=== PATIENT | male | born 1985 | race Caucasian/White ===

== ENCOUNTER 2022-01-23 09:54 | Outpatient (CLI) | payer OTHER, SELFPAY ==
[2022-01-23 18:46] LABS: Basophils Absolute Auto 0.1 K/mm3 (0.0-0.1); Basophils Percent Auto 1.2 % (0.2-1.2); Eosinophils Absolute Auto 0.2 K/mm3 (0-0.3); Eosinophils Percent Auto 3.4 % (0-4.4); Hematocrit 45.4 % (42.0-52.0); Hemoglobin 15.2 g/dL (14.0-18.0); Immature Granulocyte Absolute 0.02 K/mm3 (0.00-0.031); Immature Granulocyte Percent A 0.3 % (0-0.5); Lymphocytes Absolute Auto 1.42 K/mm3 (0.9-3.2); Lymphocytes Percent Auto 22.1 % (18.3-44.2); Mean Corpuscular HGB Conc 33.5 g/dl (32-36); Mean Corpuscular Hemoglobin 32.9 pg (26-34); Mean Corpuscular Volume 98.3 fl (80-100); Mean Platelet Volume 9.8 fl (7.4-10.4); Monocytes Absolute Auto 0.7 K/mm3 (0.1-0.6); Monocytes Percent Auto 10.3 % (2.6-8.5); Neutrophils Percent Auto 62.7 % (45.5-73.1); Platelet Count Result 337 k/mm3 (150-375); Red Blood Count 4.62 M/mm3 (4.6-6.20); White Blood Count 6.4 K/mm3 (4.5-10.0)
[2022-01-23 18:47] LABS: Alanine Aminotransferase 31 U/L (6-50); Albumin Level 4.8 g/dL (3.5-5.1); Alkaline Phosphatase 47 U/L (38-126); Anion Gap 13 mmol/L (8-16); Aspartate Amino Transferase 74 U/L (17-59); Bilirubin,Total 0.3 mg/dL (0.2-1.3); Blood Urea Nitrogen 14 mg/dL (9-20); Calcium 9.5 mg/dL (8.4-10.2); Carbon Dioxide 25 mmol/L (22-30); Chloride 104 mmol/L (98-107); Cholesterol 154 mg/dL (0-200); Estimated Glomerular Filt Rate > 60; Glucose 115 mg/dL (65-110); HDL Direct 71 mg/dL; Potassium 4.6 mmol/L (3.4-5.0); Sodium 142 mmol/L (137-145); Triglycerides 65 mg/dL (<150)
[2022-01-23 19:01] LABS: LDL Cholesterol Direct 60 mg/dL
== END 2022-01-23 09:55 | disposition home or self-care (01) ==
PROVIDERS: PCP Family Medicine; Visit Provider Family Medicine
DX: Z00.00 Encounter for general adult medical examination without abnormal findings (principal)
CPT/HCPCS: 36415; 80053; 80061; 85025

== ENCOUNTER → 2022-02-12 09:57 | Outpatient (CLI) | payer OTHER, SELFPAY ==
--- NOTE | ~2022-02-12 | US_ITS ---
US scrotum doppler DATE: 02/12/2022 10:25 INDICATION: Right scrotal lump for 10 years TECHNIQUE: Real-time and color flow imaging and Doppler analysis COMPARISON: None FINDINGS: There is an approximately 8 mm simple cyst in the head of the right epididymis. Mild bilate ral hydroceles. There is homogeneous and symmetric echotexture of the testicles. There is no evidence of testicular m ass lesion or torsion. IMPRESSION: 8 mm cyst of head of right epididymis Mild bilateral hydroceles Reviewed, dictated and finalized at [facility]. Reviewed, dictated and finalized at location A.
== END ==
PROVIDERS: PCP Family Medicine; Visit Provider Family Medicine
DX: N50.89 Other specified disorders of the male genital organs (principal); N50.3 Cyst of epididymis; N43.3 Hydrocele, unspecified
CPT/HCPCS: 76870; 93976

== ENCOUNTER 2022-04-10 07:24 | Outpatient (CLI) | payer OTHER, SELFPAY ==
[2022-04-10 20:16] LABS: Alanine Aminotransferase 20 U/L (6-50); Albumin Level 4.2 g/dL (3.5-5.1); Alkaline Phosphatase 58 U/L (38-126); Aspartate Amino Transferase 27 U/L (17-59); Bilirubin,Total 0.2 mg/dL (0.2-1.3)
[2022-04-10 21:24] LABS: Hemoglobin A1C 5.3 % (<5.7)
[2022-04-10 21:28] LABS: Hepatitis B Surface Antigen Negative (Negative)
[2022-04-10 21:33] LABS: HAV RESULT Negative (Negative); Hepatitis B Core IgM Result Negative (Negative)
[2022-04-10 21:45] LABS: Hepatitis C Virus Antibody Negative (Negative)
== END 2022-04-10 07:25 | disposition home or self-care (01) ==
LOC: ANHBWCLAB 07:25
PROVIDERS: PCP Family Medicine; Visit Provider Family Medicine
DX: R73.09 Other abnormal glucose (principal); R74.01 Elevation of levels of liver transaminase levels
CPT/HCPCS: 36415; 80074; 80076; 83036

== ENCOUNTER 2022-04-19 15:08 | Outpatient (CLI) | payer OTHER, SELFPAY ==
--- NOTE | ~2022-04-19 | US_ITS ---
EXAMINATION: US soft tissue groin RT DATE: 04/19/2022 15:56 INDICATION: Unilateral right-sided inguinal hernia without obstruction TECHNIQUE: Multiple grayscale and Doppler ultrasound images of the right groin were obtained. COMPARISON: None FINDINGS: There is a fat-containing direct left inguinal hernia which arises medial to the hypogastric vessels. This measures approximately 2.2 x 1.9 cm at baseline increasing to 3.2 x 2.3 cm with Valsalva. No ev ident herniated bowel. IMPRESSION: 1. Small fat-containing direct inguinal hernia which increases slightly in size with Valsalva. Reviewed, dictated and finalized at location A. ION SUPERVISOR
== END 2022-04-19 15:09 | disposition home or self-care (01) ==
PROVIDERS: PCP Family Medicine; Visit Provider Family Medicine
DX: K40.90 Unilateral inguinal hernia, without obstruction or gangrene, not specified as recurrent (principal)
CPT/HCPCS: 76882

== ENCOUNTER 2022-05-08 14:49 | Emergency (ER) | payer OTHER, SELFPAY ==
--- NOTE | ~2022-05-08 | XR_ITS ---
EXAMINATION: XR foot RT min 3V DATE: 05/08/2022 15:41 INDICATION: Right heel pain. TECHNIQUE: 4 views of right foot were obtained. COMPARISON: None. FINDINGS: Bone alignment is normal. No fracture. There is mild osteoarthritis of first metatarsophala ngeal joint. IMPRESSION: 1. Mild osteoarthritis of first metatarsophalangeal joint. Reviewed, dictated and finalized at location A. ICAL RESEARCH COORDINATOR
[2022-05-08 15:00] VITALS: BP 130/74; PULSE 74; RESP 16; TEMP 36.8; O2SAT 100
--- NOTE | 2022-05-08 15:26 | ED.EXTPRO ---
HPI - Extremity Problem General Chief complaint: Extremity Problem,Nontraumatic Stated complaint: right foot pain Time Seen by Provider: 05/08/22 15:26 Source: patient Mode of arrival: ambulatory Limitations: no limitations History of Present Illness HPI Narrative: 37 y/o male presented for c/o right heel pain, onset 2 days. Worse with walking or touching it. Reports mild swelling and reddened area to the side of the heel. States redness and swelling was worse last night. Denies known injury. Denies numbness, tingling weakness, or decreased ROM. Not taking anything for pain. Related Data Allergies Allergy/AdvReac Type Severity Reaction Status Date / Time No Known Allergies Allergy Unverified 05/03/22 12:38 Review of Systems Review of Systems: CONSTITUTIONAL: Denies body aches, fever, chills EYES: Denies visual changes ENT: Denies rhinorrhea, congestion CARDIOVASCULAR: Denies chest pain, palpitations, or edema. RESPIRATORY: Denies cough or dyspnea. GASTROINTESTINAL: Denies abdominal pain, nausea, vomiting, or diarrhea. SKIN: Denies rash, itching, or wounds. MUSCULOSKELETAL: Denies back pain, joint pain, or myalgia. NEUROLOGIC: Denies headache, numbness, tingling, or weakness. PSYCH: Denies depression or anxiety. All systems reviewed & are unremarkable except as noted in HPI and below PMFSH Past Medical History Medical History (Updated 05/08/22 @ 15:52 by Yasemin Ambrose, CARLOS) Anxiety Depression Family History Family History Father Alcohol abuse Heart disease Asthma Mother Hypertension Depression Social History Social History Smoking packs per day: 0.5 Smoking cigarettes per day: 10.0 Years smoked: 22 Smoking pack-years: 11.00 Smoking status: Current every day smoker Tobacco type: cigarettes Alcohol intake: current Drinks per week: 25 Alcohol use details: 3-4 BEER/DAY Substance use: current Substance use type: marijuana Lack of Transportation: No Lack of Food: Never True Current Housing: I Have Housing Concerned About Future Housing: No Difficulty Paying Gas/Electric Bills: No Difficulty Paying for Meds: No Currently Unemployed: No Education: High School Diploma/GED Difficulty w/ Childcare or Family Care: No Additional occupation/education comments: [employer] Gender identity (if verbalized by the patient): Male Spiritual care concerns: No Agree to blood products: Yes Comments At time of signature, I have reviewed and agree with nursing past medical, surgical, social and family history unless otherwise noted. Please see nursing chart for further information. There is no relevant family history pertinent to the presenting complaint Exam Narrative: GENERAL: Well-appearing, well-nourished, and in no acute distress. HEAD: Normocephalic, atraumatic. EYES: PERRLA, conjunctivae clear NECK: Supple. CHEST: Speaks in full sentences. No respiratory distress. HEART: Regular rate and rhythm. Normal and equal peripheral pulses. EXTREMITIES: Right lateral foot distal to malleolus with mild erythema of approx 2cm diameter, tender to palpation, mild swelling, no fluctuance; tender to calcaneus. Right Foot has normal strength and sensation, normal range of motion but endorses pain with movement. No open wounds, bruising, or obvious deformity; alignment normal, pulse palpable and equal bilaterally, skin warm, dry, pink. Capillary refill less than 3 seconds. SKIN: Warm, dry, no rash. NEURO: Alert and oriented x3. Course Course Emergency Course: Patient is aware of diagnosis, understands and agrees to treatment plan. Anticipatory guidance given. Patient agrees to follow-up as directed and is aware of reasons to seek care at the emergency department. Portions of this record may have been created with voice recognition software Level of Care:
== END 2022-05-08 16:02 | disposition home or self-care (01) ==
PROVIDERS: Emergency Provider Nurse Practitioner Family; PCP Family Medicine
DX: M79.671 Pain in right foot (principal); F17.210 Nicotine dependence, cigarettes, uncomplicated; F12.90 Cannabis use, unspecified, uncomplicated; F41.9 Anxiety disorder, unspecified; F32.A Depression, unspecified
CPT/HCPCS: 73630; 99213; G0463

== ENCOUNTER 2022-05-09 14:38 | Outpatient (CLI) | payer OTHER, SELFPAY | END 2022-05-09 14:39 | disposition home or self-care (01) | PROVIDERS: PCP Family Medicine; Visit Provider Surgery | DX: K40.90 Unilateral inguinal hernia, without obstruction or gangrene, not specified as recurrent (principal) | CPT/HCPCS: 36415; 86850; 86900; 86901 ==

== ENCOUNTER 2022-05-23 11:00 | Outpatient (CLI) | payer OTHER, SELFPAY | END 2022-05-23 11:01 | disposition home or self-care (01) | LOC: ANHSURGERY 11:02 | PROVIDERS: PCP Family Medicine; Visit Provider Surgery | DX: K40.90 Unilateral inguinal hernia, without obstruction or gangrene, not specified as recurrent (principal) | CPT/HCPCS: 36415; 86850; 86900; 86901 ==

== ENCOUNTER 2022-06-01 00:51 | Day surgery (SDC) | payer OTHER, SELFPAY ==
[2022-05-03 12:38] VITALS: BMI 21.2
--- NOTE | 2022-05-03 12:42 | PC.NURSE ---
Report to the Outpatient Waiting Room, entrance under the green pavilion located off [facility], at time 12:30 on date 05/15/22. Planned Procedure Time: 2:30. Time changes happen often and if your time is changed the preop area will call you the afternoon before. - You and your visitor will be asked to self-screen and do not enter if you have any COVID symptoms. - Only one visitor is requested with a max of two and NO children visitors are allowed at this time. - The patient visitor may be requested to leave or wait in car when not with patient due to distancing restrictions. - A mask is REQUIRED within the hospital. Patients may have clear liquids (water, carbonated beverages, clear teas, apple juice) until 3 hours prior to surgery (11:30) with a maximum of 20 ounces. - No food from midnight until time of surgery Take the following medications with a SIP of water the morning of surgery: LEXAPRO Medications to discontinue per physician: N/A Date to take last dose: N/A Please no make-up, nail mauritanian, hairspray, perfume, deodorant, or body powder the day of surgery. No jewelry (including any body piercings) or valuables the day of surgery, leave them at home. Please take a shower or bath the night before, or the morning of, surgery with an antibacterial soap (HIBICLENS). Wear comfortable, loose fitting clothing. - Jewelry must be removed prior to entering the operating room. Rings and piercings that are not removed may be cut off. - The hospital will not accept responsibility for valuables. - Please leave all valuables, including medications, at home the day of surgery. If you are going home after surgery, a licensed bung driver must drive you home. - NO public transportation without another adult if you receive anesthesia. - We recommend that an adult stay with you for 24 hours following discharge. - We also recommend that you do not drive, make important decision, drink alcoholic beverages, or take any drugs that were not prescribed by your health care provider for at least 24 hours after your discharge time. Follow any additional instructions given to you from your surgeon. If you or anyone in your household have experienced Covid symptoms in the past week, please notify your surgeon or the nurse liaison at the phone number below for possible testing. Telephone instructions given to PT - SEBLE LUX and asked if any additional questions and then verbalized understanding. Patient advised to call surgeon office or pre surgery nurse liaison [phone] if any additional questions.
--- NOTE | 2022-05-16 15:34 | SUR.PREOP ---
Addendum entered by Yasemin Doyle RN 05/30/22 10:29: PT TO ARRIVE AT 1030 ON 06/01/22 FOR SURGERY AT 1230. MAX 20 OZ CLEAR LIQUIDS UNTIL 0930. Original Note: Report to the Outpatient Waiting Room, entrance under the green pavilion located off [facility], at time 1230 on date 05/29/22. Planned Procedure Time: 1430. Time changes happen often and if your time is changed the preop area will call you the afternoon before. - You and your visitor will be asked to self-screen and do not enter if you have any COVID symptoms. - Only one visitor is requested with a max of two and NO children visitors are allowed at this time. - The patient visitor may be requested to leave or wait in car when not with patient due to distancing restrictions. - A mask is optional within the hospital at this time. Patients may have clear liquids (water, carbonated beverages, clear teas, apple juice) until 3 hours prior to surgery with a maximum of 20 ounces. - NO CLEAR LIQUIDS AFTER 1130 - No food from midnight until time of surgery - Infants may have breast milk until 4 hours before surgery, formula 6 hours prior to surgery. - Children will be allowed to drink immediately following surgery. If applicable, please bring a bottle or sippy cup to assist with drinking. Juice, water, soda, and popsicles are readily available. For infants on formula, please bring formula the day of surgery. Pacifiers are allowed. Take the following medications with a SIP of water the morning of surgery: LEXAPRO DO NOT STOP ANY OF YOUR OTHER PRESCRIPTION MEDICATIONS PRIOR TO SURGERY ?EXCEPT THE FOLLOWING Medications to discontinue per physician N/A Please no make-up, nail romansh, hairspray, perfume, deodorant, or body powder the day of surgery. No jewelry (including any body piercings) or valuables the day of surgery, leave them at home. Please take a shower or bath the night before, or the morning of, surgery with an antibacterial soap. Wear comfortable, loose fitting clothing. Children are encouraged to wear pajamas. - Jewelry must be removed prior to entering the operating room. Rings and piercings that are not removed may be cut off. - The hospital will not accept responsibility for valuables. - Please leave all valuables, including medications, at home the day of surgery. If you are going home after surgery, a licensed yard truck driver must drive you home. - NO public transportation without another adult if you receive anesthesia. - We recommend that an adult stay with you for 24 hours following discharge. - We also recommend that you do not drive, make important decision, drink alcoholic beverages, or take any drugs that were not prescribed by your health care provider for at least 24 hours after your discharge time. For Pediatric surgeries, we recommend two adults accompany the child home. Follow any additional instructions given to you from your surgeon. If you or anyone in your household have experienced Covid symptoms in the past week, please notify your surgeon or the nurse liaison at the phone number below for possible testing. Telephone instructions given to STEPHANIE LUX and asked if any additional questions and then verbalized understanding. Patient advised to call surgeon office or pre surgery nurse liaison [phone] if any additional questions.
--- NOTE | 2022-05-29 09:55 | SUR.PREOP ---
Patient's mom Ana called to report patient was not going to be able to have surgery today and was calling the office to cancel
--- NOTE | 2022-05-30 10:30 | PC.NURSE ---
Pt states no changes in medications or health history since initial interview. New pre-op instructions reviewed with pt. Pt denies further questions at this time.
--- NOTE | 2022-05-31 13:36 | WPDANESEPPF ---
Anes - Initial Pre Proc Eval Procedure: Operation Date: 06/01/22 13:00 Proposed Procedures p Robotic Assisted Laparoscopic Right Inguinal Hernia Repair, Possible Left Inguinal Hernia Repair, Possible Open - Brandan Delgado MD <Owen Coates MD - Last Filed: 06/14/22 14:06> Date/Time: 05/31/22 13:36 <Owen Coates MD - Last Filed: 06/14/22 14:06> Surgeon: Brandan Delgado MD <Owen Coates MD - Last Filed: 06/14/22 14:06> Pre Op Diagnosis: reduceable right inguinal hernia <Owen Coates MD - Last Filed: 06/14/22 14:06> Patient Data Age: 37 Gender: M Height: 1.73 m Weight: 63.5 kg <Owen Coates MD - Last Filed: 06/14/22 14:06> Allergies Allergy/AdvReac Type Severity Reaction Status Date / Time No Known Allergies Allergy Verified 06/12/22 10:43 <Owen Coates MD - Last Filed: 06/14/22 14:06> Home Medications Medication Instructions Recorded Confirmed Type escitalopram oxalate 20 mg tablet 20 mg PO DAILY #90 tabs 03/08/22 06/01/22 Rx (Lexapro) <Owen Coates MD - Last Filed: 06/14/22 14:06> Patient hx anesthesia problems: none <Jorge Holm MD - Last Filed: 06/01/22 12:54> Family hx anesthesia problems: none <Jorge Holm MD - Last Filed: 06/01/22 12:54> Results Review: All pre-operative results and documents have been reviewed as part of the pre-operative evaluation. <Owen Coates MD - Last Filed: 06/14/22 14:06> PMFSH Past Medical History Medical History: Medical History (Updated 06/12/22 @ 10:48 by Kasey Pierce) Anxiety Depression <Owen Coates MD - Last Filed: 06/14/22 14:06> Surgical History Surgical History: Surgical History (Updated 06/12/22 @ 10:44 by Amber Pendleton) S/P hernia repair Robotic assisted laparoscopic bilateral inguinal hernia repairs with Bard 3D mid weight mesh. 06/01/22 <Owen Coates MD - Last Filed: 06/14/22 14:06> Family History Family History: Family History Father Alcohol abuse Heart disease Asthma Mother Hypertension Depression <Owen Coates MD - Last Filed: 06/14/22 14:06> Social History Social History: Social History Smoking packs per day: 0.5 Smoking cigarettes per day: 10.0 Years smoked: 22 Smoking pack-years: 11.00 Smoking status: Current every day smoker Tobacco type: cigarettes Alcohol intake: current Drinks per week: 25 Alcohol use details: 3-4 BEER/DAY Substance use: current Substance use type: marijuana Lack of Transportation: No Lack of Food: Never True Current Housing: I Have Housing Concerned About Future Housing: No Difficulty Paying Gas/Electric Bills: No Difficulty Paying for Meds: No Currently Unemployed: No Education: High School Diploma/GED Difficulty w/ Childcare or Family Care: No Living arrangements: alone Occupation/Education: occupation Additional occupation/education comments: [employer] Gender identity (if verbalized by the patient): Male Spiritual care concerns: No Agree to blood products: Yes <Owen Coates MD - Last Filed: 06/14/22 14:06> Anes - Eval Final PreProcedure Day of Procedure 05/31/22 13:36 <Owen Coates MD - Last Filed: 06/14/22 14:06> Patient weight: thin <Jorge Holm MD - Last Filed: 06/01/22 12:54> Heart: regular rate and rhythm <Jorge Holm MD - Last Filed: 06/01/22 12:54> Lungs: clear to auscultation <Jorge Holm MD - Last Filed: 06/01/22 12:54> Airway: Mallampati scale class II <Jorge Holm MD - Last Filed: 06/01/22 12:54> Neurological: alert and oriented <Jorge Holm MD - Last Filed: 06/01/22 12:54> Last oral intake: >/= 8 hours <Jorge Holm MD - Last Filed: 06/01/22 12:54> ASA classification:
[2022-06-01] VITALS (8 sets, daily range): BP systolic 98–148; BP diastolic 52–80; PULSE 49–85; RESP 16–18; TEMP 36.6–36.9; O2SAT 97–100
[2022-06-01] MEDS: LACTATED RINGERS 1,000 ML 30 ML IV CONT ×3 (11:08→16:42)
[2022-06-01 12:18] LABS: Ethanol < 10 mg/dL (<10)
[2022-06-01] MEDS: KETOROLAC 15 MG/ML VIAL (*BKC) IV PUSH ×2 (12:42→15:53)
[2022-06-01] MEDS: ACETAMINOPHEN 500 MG TABLET 1000 MG PO (12:42)
--- NOTE | 2022-06-01 12:45 | SUR.PREOP ---
updated patient on time delay for surgery start
--- NOTE | 2022-06-01 13:15 | WPDHPUPDATE1 ---
History and Physical Update Update Date/Time: 06/01/22 13:15 History and Physical has been reviewed, including an updated exam of the patient. There are NO changes in the patient's condition. Risks, benefits, and alternatives have been discussed and questions answered. Patient agrees to proceed with procedure.
--- NOTE | 2022-06-01 13:28 | PM.IMHP ---
H&P: HPI History of Present Illness Date/Time: 06/01/22 13:28 Chief Complaint: right inguinal hernia Narrative: HPI HPI Comments Details: Mr. Torres presents to the office today at the request of Wilian Leon MD for evaluation of a possible inguinal hernia.? Patient reports a one month history of right inguinal bulging with mild associated discomfort.? Notices that when he's more active and by the end of his work day, bulge is larger and and that's when he notices discomfort.? He was sent for a ultrasound which showed a fat-containing right inguinal hernia which increases in size with Valsalva. Is a current smoker and coughs occasionally.? Denies chronic cough.? Admits to waking two to three times a night to urinate.? PFSH Medical History?(Updated 05/01/22 @ 09:38 by Kasey Pierce) Anxiety Depression No pertinent surgical history Family History? Father Alcohol abuse Heart disease AsthmaMother Hypertension Depression Social History? Smoking status:? Current every day smoker Tobacco type:? cigarettes Alcohol intake:? current Alcohol use details:? beer? ? Substance use:? never Substance use type:? does not use Lack of Transportation:? No Lack of Food:? Never True Current Housing:? I Have Housing Concerned About Future Housing:? No Difficulty Paying Gas/Electric Bills:? No Difficulty Paying for Meds:? No Currently Unemployed:? No Education:? High School Diploma/GED Difficulty w/ Childcare or Family Care:? No Additional occupation/education comments:? [employer] ? Gender identity (if verbalized by the patient):? Male Spiritual care concerns:? No Agree to blood products:? Yes Intake Vital Signs ? 05/01/2308:22 Height 1.7 m Height (Inches) 67 Weight 63.163 kg Weight (Lbs) 139 lbs., 4 oz. BMI 21.8 BP 111/68 Blood Pressure Location Rt brachial Position Sitting Respiration 16 Pulse 59 L Pulse Source Monitor Temp 36.1 C L Temp Source Tympanic Pulse Oximetry (%) 98 Oxygen Delivery Method Room Air Visit Reasons:?Hernia Allergies/Adverse Reactions No Known Allergies Allergy (Unverified 05/01/22 09:20) Preferred laboratory: [facility] Pre-Planning preparation?: Yes Review of Systems Const All systems reviewed & are unremarkable except as noted in HPI and below Denies chills, Denies fever(s), Denies headache(s) and Denies weakness Eyes Reports no additional complaints, Denies loss of peripheral vision and Denies loss of vision ENT Denies vertigo, Denies dizziness, Denies headache(s) and Denies sinus pressure Card Denies syncope, Denies irregular heart rhythm, Denies claudication, Denies lightheadedness, Denies palpitations, Denies dyspnea and Denies dyspnea on exertion Resp Denies pain with cough, Denies dyspnea, Denies dyspnea on exertion and Denies wheezing GI Denies change in bowel habits and Denies dyspepsia Denies hematuria and Denies urinary incontinence Musc Denies arthralgias, Denies joint swelling and Denies muscle weakness Neuro Denies behavioral changes, Denies confusion, Denies vertigo, Denies dizziness, Denies syncope, Denies headache(s), Denies loss of vision, Denies seizure-like activity and Denies weakness Psych Denies behavioral changes, Denies confusion and Denies tactile hallucinations Endo Denies palpitations Aller/ Immun Reports no additional complaints and Denies wheezing Exam Exam Const General: No confusion Orientation/Consciousness: No confusion [facility] Head: normal to inspection Ears: hearing grossly normal bilaterally Face/Nose/Sinus: Normal external nose present and normal facial exam Eyes General: appearance normal, both eyes and all related structures Eyelids: eyelids normal Conjunctivae/Sclera: Yes conjunctivae normal Neck General: Yes normal visual inspection, Yes full ROM and Yes no neck mass and non-tender Resp Effort/Inspection: normal respiratory effort
[2022-06-01] MEDS: ceFAZolin 2 GM/D5W 50 ML 2 GM/50 ML BAG IVPB (13:55)
[2022-06-01] MEDS: BUPivacaine HCL 0.5% PF 30 ML VIAL 20 ML INFILTRATE (14:29)
[2022-06-01] MEDS: fentaNYL CITRATE INJ (*CRX) 100 MCG/2 ML VIAL 25 MCG IV PUSH ×6 (16:34→17:59)
--- NOTE | 2022-06-01 17:03 | W.PM.PROC2 ---
Procedure Note - Detailed Date of Procedure 06/01/22 Pre-op Diagnosis reduceable right inguinal hernia Post-op Diagnosis Other (Bilateral direct inguinal hernias.) Procedure Performed Robotic assisted laparoscopic bilateral inguinal hernia repairs with Bard 3D mid weight mesh. Surgeon Brandan Delgado MD Anesthesia General Indications Patient is a 37-year-old gentleman who presented with a complaint of pain and bulge in the right groin region. He was diagnosed with a right inguinal hernia by exam in the office. He had suggestive of possible small left inguinal hernia as well and so he presents now for a robotic assisted laparoscopic right inguinal hernia repair with mesh, possible left inguinal hernia repair with mesh. Findings Bilateral direct inguinal defects without incarceration of any abdominal viscera. Description of Procedure After informed consent was obtained the patient was brought to the operating room where he was placed in supine position and general endotracheal anesthesia was administered. The abdomen and bilateral groin regions were then prepped and draped in the usual sterile fashion. A time-out was then performed correctly identifying the patient as well as the procedure to be performed and verifying the site marking in the right groin region. He was given Ancef for perioperative IV antibiotics. I then proceeded to gain access into the abdomen by placing 10mm Optiview port in the left upper quadrant without difficulty. The abdomen was then insufflated to an adequate pneumoperitoneum of 15mmHg of CO2. Laparoscopic evaluation of the bilateral groin regions revealed a moderate-sized direct defect in the right groin region. Also evident was a moderate sized direct defect in the left groin region as well. I then proceeded to place additional 8mm robotic trocar ports across the mid abdominal region under direct visualization. I then had the [employer] Marlee robot brought to the patient's bedside and the robotic arms were attached to the robotic ports. Robotic instruments were then advanced into the abdomen under direct visualization. I then scrubbed out the procedure sat down at the robotic console to perform the repairs robotically. I 1st started by creating a preperitoneal flap across the lower abdomen starting anterior superior to the left anterior superior iliac spine and extending it across the whole lower abdominal wall to the opposite side. I dissected in this preperitoneal plane lowering the bladder in the midline and dissecting down to the bilateral pubic tubercles. The peritoneum was dissected out the bilateral direct inguinal defects. The peritoneal flap was developed and dissected bilaterally up onto the psoas muscles. There was no evidence of indirect inguinal hernia defects. I then utilized 2 0 absorbable V lock sutures and closed both direct defects as well as imbricating the pseudo sacs. I then chose 2 pieces of mesh for the repair. For the left side a left-sided configured piece of Bard 3D mid weight mesh in a large size measuring 16cm in length by 10cm in with was chosen. For the right side a similar size piece of mesh was chosen which was configured for the right side. The left-sided mesh was placed into the abdomen through the left upper quadrant bedside client services assistant trocar port site. The mesh was placed into the dissected space on left groin region covering the closed direct space as well as the internal ring and the femoral space. I secured the mesh to the tissues around the pubic tubercle medially and to the muscle anterior and medial to the left anterior superior iliac spine. This was done a 2 0 Vicryl sutures. A 3rd suture was placed approximate the mesh to the closed direct hernia defect. A 2nd piece of mesh oriented for the right side was then brought into the abdomen and placed into the dissected space. The 2 pieces of mesh overlapped in the midline over the area the pubic symphysis. The right-sided mesh was the
[2022-06-01] MEDS: oxyCODONE HCL (*CRX) 5 MG TAB IR PO (17:30)
--- NOTE | 2022-06-01 19:00 | SUR.PHASEII ---
1825- Pt could not void, after trying two separate times. Pt drinking oral fluids and IV running. Bladder scanner performed and it showed about 450 mls of urine in bladder. 1834- Pt stated he felt like he could void. Pt stated he had a stream for about 20 sec. He stated it was more then a dribble.
== END 2022-06-01 18:45 | disposition home or self-care (01) ==
PROVIDERS: Anesthesiology; PCP Family Medicine; Visit Provider Surgery
PROC: 8E0Y4CZ Robotic Assisted Procedure of Lower Extremity, Percutaneous Endoscopic Approach (ICD-10-PCS; CPT 49650; principal; 2022-06-01 13:00)
DX: K40.20 Bilateral inguinal hernia, without obstruction or gangrene, not specified as recurrent (principal); F41.9 Anxiety disorder, unspecified; F32.A Depression, unspecified; F17.210 Nicotine dependence, cigarettes, uncomplicated; F12.90 Cannabis use, unspecified, uncomplicated; Z79.899 Other long term (current) drug therapy
CPT/HCPCS: 49650; S2900; 36415; 80307; A9270; C1781; J0330; J0690; J1100; J1170; J1885; J2250; J2405; J2704; J3010; J7030; J7120

== ENCOUNTER 2022-08-04 18:03 | Emergency (ER) | payer OTHER, SELFPAY ==
--- NOTE | ~2022-08-04 | CT_ITS ---
EXAMINATION: CT abdomen pelvis w con DATE: 08/04/2022 19:06 INDICATION: Left upper quadrant and epigastric pain and tenderness. TECHNIQUE: Computed tomography (CT) of the abdomen and pelvis was performed with 100 mL Omnipaque-350 intravenous contrast. Automated exposure control and iterative reconstruction technique were employe d. The dose-length product was 234.66 mGy-cm. COMPARISON: None FINDINGS: Lung bases are clear. Heart size is normal. No pericardial or pleural effusion. Liver, gallbladder, s pleen, pancreas, bilateral adrenal glands and kidneys are normal. Large amount of fluid and ingested debris within the stomach. Bowels are unremarkable with no abnormal wall thickening or obstruction. N ormal retrocecal appendix. Bladder is normal. No free intraperitoneal gas or fluid. No pathologically enlarged abdominal or pelvic lymphadenopathy. Mild thoracolumbar levocurvature with minimal to mild spondylosis. IMPRESSION: 1. No acute intra-abdominal/pelvic process. Reviewed, dictated and finalized at location A.
[2022-08-04 18:05] VITALS: BP 141/76; PULSE 82; RESP 18; TEMP 36.8; O2SAT 98
--- NOTE | 2022-08-04 18:25 | ECG_ITS ---
Measurements Intervals [place] Rate: 71 P: 63 MI: 140 QRS: 78 QRSD: 97 T: 59 QT: 391 QTc: 427 Interpretive Statements SINUS RHYTHM NO PREVIOUS ECG AVAILABLE FOR COMPARISON Electronically Signed On 08-05-2022 9:15:25 CDT by Emily Corbett M.D.
--- NOTE | 2022-08-04 18:25 | PC.NURSE ---
Pt reports to nurse that he has been having cp after being checked in.
[2022-08-04 18:28] LABS: Basophils Absolute Auto 0.1 K/mm3 (0.0-0.1); Basophils Percent Auto 0.7 % (0.2-1.2); Eosinophils Absolute Auto 0.4 K/mm3 (0-0.3); Eosinophils Percent Auto 4.4 % (0-4.4); Hematocrit 36.5 % (42.0-52.0); Hemoglobin 12.4 g/dL (14.0-18.0); Immature Granulocyte Absolute 0.02 K/mm3 (0.00-0.031); Immature Granulocyte Percent A 0.2 % (0-0.5); Lymphocytes Absolute Auto 2.44 K/mm3 (0.9-3.2); Lymphocytes Percent Auto 30.4 % (18.3-44.2); Mean Corpuscular Hemoglobin 33.2 pg (26-34); Mean Corpuscular Volume 97.6 fl (80-100); Mean Platelet Volume 8.9 fl (7.4-10.4); Monocytes Absolute Auto 0.9 K/mm3 (0.1-0.6); Monocytes Percent Auto 10.8 % (2.6-8.5); Neutrophils Absolute Auto 4.3 K/mm3 (1.3-6.7); Neutrophils Percent Auto 53.5 % (45.5-73.1); Platelet Count Result 321 k/mm3 (150-375); Red Blood Count 3.74 M/mm3 (4.6-6.20); Red Cell Distribution Width 12.3 % (11.5-14.5)
--- NOTE | 2022-08-04 18:31 | ED.ABDPAIN ---
HPI - Abdominal Pain General Chief Complaint: Abdominal Pain Stated Complaint: Abdominal pain Time Seen by Provider: 08/04/22 18:16 History of Present Illness HPI narrative: Patient is a 37-year-old male with a history of alcohol use disorder presenting with abdominal pain. Patient states that he recently underwent detox and started a rehab program with [facility]. States that he has been there for the last several days. States that he has abstained from alcohol except for 1 tall boy 2 days ago. States that today while he was in group he developed epigastric pain that radiates into his chest and into his left upper quadrant. States that he feels nauseated but has not vomited. States that he had an inguinal hernia repair a month or 2 ago. Denies changes in bowel movements. Denies dysuria or hematuria. Denies fevers or chills, lightheadedness, palpitations, shortness of breath. Related Data Allergies Allergy/AdvReac Type Severity Reaction Status Date / Time No Known Allergies Allergy Verified 06/12/22 10:43 Review of Systems Review of Systems: All systems reviewed & are unremarkable except as noted in HPI and below PMFSH Past Medical History Medical History Anxiety Depression Surgical History Surgical History S/P hernia repair Robotic assisted laparoscopic bilateral inguinal hernia repairs with Bard 3D mid weight mesh. 06/01/22 Family History Family History Father Alcohol abuse Heart disease Asthma Mother Hypertension Depression Social History Social History Smoking packs per day: 0.5 Smoking cigarettes per day: 10.0 Years smoked: 22 Smoking pack-years: 11.00 Smoking status: Current every day smoker Tobacco type: cigarettes Alcohol intake: current Drinks per week: 25 Alcohol use details: 3-4 BEER/DAY Substance use: current Substance use type: marijuana Lack of Transportation: No Lack of Food: Never True Current Housing: I Have Housing Concerned About Future Housing: No Difficulty Paying Gas/Electric Bills: No Difficulty Paying for Meds: No Currently Unemployed: No Education: High School Diploma/GED Difficulty w/ Childcare or Family Care: No Living arrangements: alone Occupation/Education: occupation Additional occupation/education comments: [employer] Gender identity (if verbalized by the patient): Male Spiritual care concerns: No Agree to blood products: Yes Exam Narrative: GENERAL: Well-appearing, well-nourished, and in no acute distress. HEAD: Normocephalic, atraumatic. EYES: PERRLA and EOMI. ENT: Nares clear, no rhinorrhea or epistaxis. Mucous membranes moist. NECK: Supple. CHEST: Clear to auscultation. No respiratory distress. HEART: Regular rate and rhythm. No murmur heard. Normal peripheral pulses. ABDOMEN: Soft, tenderness in epigastrium and left upper quadrant, no guarding or rebound EXTREMITIES: Normal range of motion. No edema. SKIN: Warm, dry, no rash. NEURO: No focal deficits. Alert and oriented x3. PSYCH: Normal mood and affect. Course Vital Signs Vital signs: Vital Signs Temperature 98.3 F 08/04/22 18:05 Pulse Rate 82 08/04/22 18:05 Respiratory Rate 18 08/04/22 18:05 Blood Pressure 141/76 H 08/04/22 18:05 Pulse Oximetry 98 08/04/22 18:05 Oxygen Delivery Room Air 08/04/22 18:05 Temperature 98.3 F 08/04/22 18:05 Pulse Rate 63 08/04/22 20:11 Respiratory Rate 18 08/04/22 20:11 Blood Pressure 136/72 08/04/22 20:11 Pulse Oximetry 99 08/04/22 20:11 Oxygen Delivery Room Air 08/04/22 18:05 MDM - Abdominal Pain MDM Narrative Medical decision making narrative: Patient is a 37-year-old male presenting with epigastric pain and nausea. Vitals
[2022-08-04 18:48] LABS: Alanine Aminotransferase 37 U/L (6-50); Albumin Level 4.3 g/dL (3.5-5.1); Alkaline Phosphatase 61 U/L (38-126); Anion Gap 7 mmol/L (8-16); Aspartate Amino Transferase 34 U/L (17-59); Bilirubin,Total 0.3 mg/dL (0.2-1.3); Blood Urea Nitrogen 15 mg/dL (9-20); Calcium 8.9 mg/dL (8.4-10.2); Carbon Dioxide 29 mmol/L (22-30); Chloride 105 mmol/L (98-107); Estimated Glomerular Filt Rate > 60; Glucose 92 mg/dL (65-110); Lipase 172 U/L (23-300); Potassium 4.2 mmol/L (3.4-5.0); Sodium 141 mmol/L (137-145)
[2022-08-04 18:56] LABS: Appearance Urine Clear (Clear); Bilirubin Urine Negative (Negative); Blood Urine Negative (Negative); Color Urine Yellow (Yellow); Glucose Urine UA Negative (Negative); Ketones Urine Negative (Negative); Leukocyte Esterase Ur Negative LEU/UL (Negative); Nitrate Urine Negative (Negative); Protein Urine Negative (Negative); Specific Grav Ur 1.021 (1.001-1.035); Urobilinogen Urine 0.2 mg/dL (<2.0)
[2022-08-04 18:58] LABS: Troponin I 0.016 ng/mL (0.000-0.034)
[2022-08-04 19:12] LABS: Add Urine Microscopic? NO
[2022-08-04] MEDS: SODIUM CHLORIDE 0.9% IV 1,000 ML 999 ML IV CONT (19:17)
[2022-08-04] MEDS: ONDANSETRON INJ 4 MG/2 ML VIAL IV PUSH (19:18)
[2022-08-04] MEDS: FAMOTIDINE 20 MG/2 ML VIAL IV PUSH (19:18)
[2022-08-04] MEDS: fentaNYL CITRATE INJ (*CRX) 100 MCG/2 ML VIAL 50 MCG IV PUSH (19:18)
[2022-08-04 20:07] LABS: Troponin I 0.012 ng/mL (0.000-0.034)
[2022-08-04] MEDS: BELLADONNA ALK/PHENOB ELIX 10 ML, MAG HYDROX/ALUMINUM HYD/SIMETH 30 ML, LIDOCAINE HCL 2... PO (20:09)
[2022-08-04 20:11] VITALS: BP 136/72; PULSE 63; RESP 18; O2SAT 99
== END 2022-08-04 21:18 | disposition home or self-care (01) ==
PROVIDERS: Emergency Provider Emergency Medicine; PCP Family Medicine
DX: K29.70 Gastritis, unspecified, without bleeding (principal); F10.20 Alcohol dependence, uncomplicated; F17.210 Nicotine dependence, cigarettes, uncomplicated; F41.9 Anxiety disorder, unspecified; F32.A Depression, unspecified
CPT/HCPCS: 36415; 74177; 80053; 81003; 83690; 84484; 85025; 93005; 96361; 96374; 96375; 99284; A9270; J2405; J3010; J7030; Q9967

== ENCOUNTER 2022-09-12 14:29 | Outpatient (CLI) | payer OTHER, SELFPAY ==
--- NOTE | ~2022-09-12 | XR_ITS ---
XR foot LT min 3V 09/12/2022 14:50 Indication: Left foot pain. Ganglion cyst. Procedure: 4 views left foot Comparison: No prior studies for comparison. Findings: There is anatomic alignment. No fracture, subluxation or dislocation. Lisfranc joint intact . No focal soft tissue abnormality. No foreign bodies. Impression: 1: No significant bone or joint abnormality. Reviewed, dictated and finalized at location D. Impression: 1: No significant bone or joint abnormality.
[2022-09-12 19:15] LABS: Appearance Urine Clear (Clear); Bilirubin Urine Negative (Negative); Blood Urine Negative (Negative); Color Urine Yellow (Yellow); Glucose Urine UA Negative (Negative); Ketones Urine Negative (Negative); Leukocyte Esterase Ur Negative LEU/UL (NEGATIVE); Nitrate Urine Negative (Negative); Protein Urine Negative (Negative); Specific Grav Ur 1.016 (1.001-1.035); Urobilinogen Urine 0.2 mg/dL (<2.0)
[2022-09-12 19:21] LABS: Basophils Absolute Auto 0.1 K/mm3 (0.0-0.1); Basophils Percent Auto 0.7 % (0.2-1.2); Eosinophils Absolute Auto 0.2 K/mm3 (0-0.3); Eosinophils Percent Auto 1.9 % (0-4.4); Hematocrit 41.8 % (42.0-52.0); Hemoglobin 13.9 g/dL (14.0-18.0); Immature Granulocyte Absolute 0.03 K/mm3 (0.00-0.031); Immature Granulocyte Percent A 0.3 % (0-0.5); Lymphocytes Absolute Auto 1.42 K/mm3 (0.9-3.2); Lymphocytes Percent Auto 14.3 % (18.3-44.2); Mean Corpuscular HGB Conc 33.3 g/dl (32-36); Mean Corpuscular Hemoglobin 32.6 pg (26-34); Mean Corpuscular Volume 97.9 fl (80-100); Mean Platelet Volume 9.4 fl (7.4-10.4); Monocytes Absolute Auto 0.6 K/mm3 (0.1-0.6); Monocytes Percent Auto 6.1 % (2.6-8.5); Neutrophils Absolute Auto 7.6 K/mm3 (1.3-6.7); Neutrophils Percent Auto 76.7 % (45.5-73.1); Platelet Count Result 391 k/mm3 (150-375); Red Blood Count 4.27 M/mm3 (4.6-6.20); Red Cell Distribution Width 12.4 % (11.5-14.5)
[2022-09-12 19:31] LABS: Add Urine Microscopic? NO
[2022-09-12 19:37] LABS: Alanine Aminotransferase 25 U/L (6-50); Albumin Level 4.7 g/dL (3.5-5.1); Alkaline Phosphatase 58 U/L (38-126); Anion Gap 7 mmol/L (8-16); Aspartate Amino Transferase 48 U/L (17-59); Bilirubin,Total 0.5 mg/dL (0.2-1.3); Blood Urea Nitrogen 11 mg/dL (9-20); Calcium 9.2 mg/dL (8.4-10.2); Carbon Dioxide 32 mmol/L (22-30); Chloride 104 mmol/L (98-107); Estimated Glomerular Filt Rate > 60; Glucose 99 mg/dL (65-110); Potassium 4.1 mmol/L (3.4-5.0); Sodium 143 mmol/L (137-145)
[2022-09-12 20:16] LABS: HIV 1/2 Ab P24 Ag Result Negative (Negative)
[2022-09-13 08:53] LABS: Rapid Plasma Reagin Non-Reactive (NonReactive)
== END 2022-09-12 14:30 | disposition home or self-care (01) ==
LOC: ANHBWCLAB 14:31
PROVIDERS: PCP Family Medicine; Visit Provider Nurse Practitioner
DX: M67.40 Ganglion, unspecified site (principal); M79.672 Pain in left foot; Z20.2 Contact with and (suspected) exposure to infections with a predominantly sexual mode of transmission; R74.01 Elevation of levels of liver transaminase levels; R73.09 Other abnormal glucose; Z00.00 Encounter for general adult medical examination without abnormal findings
CPT/HCPCS: 36415; 73630; 80053; 81003; 85025; 86592; 86703; 87491; 87591; G0432

== ENCOUNTER 2022-10-14 15:50 | Emergency (ER) | payer OTHER, SELFPAY ==
[2022-10-14 16:05] VITALS: BP 131/65; PULSE 61; RESP 14; TEMP 36.6; O2SAT 99
[2022-10-14] MEDS: TETRACAINE HCL 0.5% OPHTH SOLN 4 ML BTL 1 DROP EACH EYE (17:10)
[2022-10-14] MEDS: FLUORESCEIN SOD 1 MG/STRIP EACH EYE (17:10)
--- NOTE | 2022-10-14 17:26 | ED.EYEPROB ---
HPI - Eye Problem General Chief complaint: Eye Problems Stated complaint: possible foreign body in eye Time Seen by Provider: 10/14/22 16:33 History of Present Illness HPI Narrative: this is a 37-year-old male with no significant past medical history, presents to the emergency department complaining of left eye irritation for the past 2 days. 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 He was wearing eye protection at the time. Later the same day, he developed a stinging, foreign body sensation at the medial aspect of the left eye, rated 6/10 and gradually improved to 2/10. He denies loss of vision or blurred vision. Denies fevers, chills and has no other complaints. Related Data Allergies Allergy/AdvReac Type Severity Reaction Status Date / Time No Known Allergies Allergy Verified 09/12/22 13:54 Review of Systems Review of Systems: All systems reviewed & are unremarkable except as noted in HPI and below (HPI) PMFSH Past Medical History Medical History Anxiety Depression Surgical History Surgical History S/P hernia repair Robotic assisted laparoscopic bilateral inguinal hernia repairs with Bard 3D mid weight mesh. 06/01/22 Family History Family History Father Alcohol abuse Heart disease Asthma Mother Hypertension Depression Social History Social History Smoking packs per day: 0.5 Smoking cigarettes per day: 10.0 Years smoked: 22 Smoking pack-years: 11.00 Smoking status: Current every day smoker Tobacco type: cigarettes Alcohol intake: current Drinks per week: 25 Alcohol use details: 3-4 BEER/DAY Substance use: current Substance use type: marijuana Lack of Transportation: No Lack of Food: Never True Current Housing: I Have Housing Concerned About Future Housing: No Difficulty Paying Gas/Electric Bills: No Difficulty Paying for Meds: No Currently Unemployed: No Education: High School Diploma/GED Difficulty w/ Childcare or Family Care: No Living arrangements: alone Occupation/Education: occupation Additional occupation/education comments: [employer] Gender identity (if verbalized by the patient): Male Spiritual care concerns: No Agree to blood products: Yes Exam Narrative: GENERAL: Well-developed, well-nourished, and in no acute distress. HEAD: Normocephalic, atraumatic. EYES: PERRLA and EOMI. There are 2 noted papules and the medial canthus of the left eye with a small amount of erythema. There is no noted induration or purulent drainage. The remaining palpebral and bulbar conjunctiva appear normal. There is no visible retained foreign object. ENT: Nares clear, no rhinorrhea or epistaxis. Mucous membranes moist. Oropharynx without tonsillar hypertrophy exudate or other lesions. Bilateral TMs pearly redmond nonbulging NECK: Supple. No adenopathy or masses. No carotid bruits or JVD CHEST: Clear to auscultation. No respiratory distress. No wheezes rales or rhonchi HEART: Regular rate and rhythm. No murmur heard. Normal peripheral pulses. ABDOMEN: Soft, nontender, nondistended, normal active bowel sounds. EXTREMITIES: Normal range of motion. No edema. SKIN: Warm, dry, no rash. NEURO: No focal deficits. Alert and oriented x3. PSYCH: Normal mood and affect. Course Course Emergency Course: 17:29 - Fluorescein staining is not concerning for corneal abrasion or corneal ulcer. I suspect conjunctivitis related to plant matter exposure. Will discharge with ophthalmic antibiotics and recommendation to follow up with primary care. Discussed return to an emergency precautions including signs /symptoms of orbi
== END 2022-10-14 17:44 | disposition home or self-care (01) ==
PROVIDERS: Emergency Provider Preventive Medicine Aerospace Medicine; PCP Family Medicine
DX: H10.9 Unspecified conjunctivitis (principal); H57.12 Ocular pain, left eye; F17.210 Nicotine dependence, cigarettes, uncomplicated
CPT/HCPCS: 99283

== ENCOUNTER 2023-04-25 13:10 | Emergency (ER) | payer OTHER, SELFPAY ==
--- NOTE | 2023-04-25 13:12 | ED.URI ---
HPI - URI/Sore Throat General Chief Complaint: Upper Respiratory Infection Stated Complaint: congestion head/chest/aches/chills Time Seen by Provider: 04/25/23 13:41 Source: patient, RN notes reviewed and old records reviewed Mode of arrival: ambulatory Limitations: no limitations History of Present Illness HPI Narrative: 38-year-old male presents to the [facility] with complaints of sinus congestion, cough, chills, body aches that started 5 days ago. No treatment prior to arrival. Onset (ago): day(s) (5) Related Data Allergies Allergy/AdvReac Type Severity Reaction Status Date / Time No Known Allergies Allergy Verified 04/25/23 13:27 Review of Systems Review of Systems: All systems reviewed & are unremarkable except as noted in HPI and below Constitutional: Constitutional: Reports as per HPI, Reports body ache(s), Reports chills, Reports fatigue and Denies fever(s) Eyes: Eyes: Reports no additional eye complaints ENT: Reports as per HPI and Reports nasal discharge Cardiovascular: Cardiovascular: Reports no additional cardiovascular complaints, Denies chest pain and Denies dyspnea Respiratory: Respiratory: Reports as per HPI, Denies chest congestion, Reports cough and Denies dyspnea Gastrointestinal: Gastrointestinal: Reports no additional gastrointestinal complaints, Denies abdominal pain, Denies nausea and Denies vomiting Musculoskeletal: Musculoskeletal: Reports no additional musculoskeletal complaints Integumentary/Breasts: Skin/Breast: Reports system reviewed and no additional complaints, except as docu Neurologic: Reports system reviewed and no additional complaints, except as documented Psychiatric: Psychiatric: Reports no additional psychiatric complaints Allergic/Immunologic: Allergic/Immunologic: Reports no additional allergic/immunologic complaints PMFSH Past Medical History Medical History Anxiety Depression Surgical History Surgical History S/P hernia repair Robotic assisted laparoscopic bilateral inguinal hernia repairs with Bard 3D mid weight mesh. 06/01/22 Family History Family History Father Alcohol abuse Heart disease Asthma Mother Hypertension Depression Social History Social History Smoking packs per day: 0.5 Smoking cigarettes per day: 10.0 Years smoked: 22 Smoking pack-years: 11.00 Smoking status: Current every day smoker Tobacco type: cigarettes Alcohol intake: current Drinks per week: 25 Alcohol use details: 3-4 BEER/DAY Substance use: current Substance use type: marijuana Lack of Transportation: No Lack of Food: Never True Current Housing: I Have Housing Concerned About Future Housing: No Difficulty Paying Gas/Electric Bills: No Difficulty Paying for Meds: No Currently Unemployed: No Education: High School Diploma/GED Difficulty w/ Childcare or Family Care: No Living arrangements: alone Occupation/Education: occupation Additional occupation/education comments: [employer] Gender identity (if verbalized by the patient): Male Spiritual care concerns: No Agree to blood products: Yes Comments At the time of my signature, I reviewed and agree with the nursing past medical, surgical, social, and family history. There is no relevant family history pertinent to the patient complaint. Exam Const: General: cooperative, healthy appearing, comfortable, no acute distress, well developed, alert, anxious and well nourished Nutritional Appearance: well nourished Orientation/consciousness: patient oriented x3 Limitations: no limitations HENMT: Head: normal to inspection Ears: hearing grossly normal bilaterally and external ears normal Face/Nose/Sinus: Normal external nose present, Normal nares present, Cecilia
[2023-04-25 13:14] VITALS: BP 133/46; PULSE 86; RESP 20; TEMP 37.1; O2SAT 98
== END 2023-04-25 13:55 | disposition home or self-care (01) ==
PROVIDERS: Emergency Provider Nurse Practitioner; PCP Family Medicine
DX: J06.9 Acute upper respiratory infection, unspecified (principal); Z20.822 Contact with and (suspected) exposure to COVID-19; F17.210 Nicotine dependence, cigarettes, uncomplicated
CPT/HCPCS: 87426; 87804; 99213; C9803; G0463